=== PATIENT | female | born 1965 | race Hispanic/Latino ===

== ENCOUNTER → 2018-07-14 | Outpatient (CLI) | payer BC, MEDICARE | END | disposition home or self-care (01) | LOC: OIH 15:46 | PROVIDERS: ATTEND Internal Medicine | DX: M85.842 Other specified disorders of bone density and structure, left hand (principal); M85.841 Other specified disorders of bone density and structure, right hand; M06.4 Inflammatory polyarthropathy | CPT/HCPCS: 73130; 73560; 73630 ==

== ENCOUNTER 2019-04-25 23:03 | Emergency (ER) | payer BC, MEDICARE ==
[2019-04-25 23:39] LABS: APPEARANCE,URINE Cloudy (CLEAR); BILIRUBIN,URINE Negative (NEGATIVE); COLOR,URINE Yellow (YELLOW); GLUCOSE, URINE (UA) Negative (NEGATIVE); KETONES,URINE Trace mg/dL (NEGATIVE); LEUKOCYTE ESTERASE ,URINE Moderate (NEGATIVE); NITRATE,URINE Negative (NEGATIVE); OCCULT BLOOD,URINE Moderate (NEGATIVE); PH,URINE 5.5 (5.0-8.0); PROTEIN,URINE Trace mg/dL (NEGATIVE)
[2019-04-25 23:50] LABS: BACTERIA,URINE Few /HPF (None Seen); MUCUS,URINE Few LPF (None Seen); SQUAMOUS EPITHELIAL CELL,UR Moderate /HPF (0-2)
[2019-04-25 23:51] LABS: CALCIUM OXALATE CRYSTALS,UR Moderate /LPF (None Seen)
[2019-04-25] MEDS ORDERED: ONDANSETRON HCL 4 MG/2 ML VIAL ONE (23:56)
[2019-04-25] MEDS ORDERED: METOCLOPRAMIDE 10 MG/2 ML VIAL ONE (23:56)
[2019-04-25] MEDS ORDERED: DiphenhydrAMINE HCL 50 MG/ML VIAL ONE (23:56)
[2019-04-25] MEDS ORDERED: KETOROLAC TROMETHAMINE 30MG/ML ONE (23:57)
[2019-04-25] MEDS ORDERED: SODIUM CHLORIDE 0.9% 1000ML 1,000 ML IV ONE (23:57)
[2019-04-26 00:01] LABS: BASOPHILS % (AUTO) 0.6 % (0.0-5.0); EOSINOPHILS % (AUTO) 2.9 % (0.0-8.0); HEMATOCRIT 36.5 % (36-48); LYMPHOCYTES % (AUTO) 36.6 % (21.0-51.0); MEAN CORPUSCULAR HEMOGLOBIN 31.4 pg (27.0-33.0); MEAN CORPUSCULAR HGB CONC 34.8 g/dL (32.0-36.0); MONOCYTES % (AUTO) 5.5 % (3.0-13.0); NEUTROPHILS % (AUTO) 54.4 % (40.0-77.0); NUCLEATED RED BLOOD CELLS 0.1 % (0.0-0.19); PLATELET COUNT (AUTO) 88 K/uL (130-400); RED BLOOD CELL COUNT(AUTO) 4.05 MIL/uL (4.00-5.50); RED CELL DISTRIBUTION WIDTH 12.8 % (11.0-15.5)
[2019-04-26 00:11] LABS: CREATININE 0.7 mg/dL (0.5-1.5); POTASSIUM 3.6 mmol/L (3.5-5.1)
[2019-04-26 00:18] LABS: ALBUMIN 3.9 g/dL (3.5-5.0); BILIRUBIN,TOTAL 0.4 mg/dL (0.2-1.0); TOTAL PROTEIN, SERUM 7.9 g/dL (6.0-8.3)
[2019-04-26] MEDS ORDERED: LIDOCAINE HCL MPF 1% 5ML VIAL ONE (00:25)
[2019-04-26] MEDS ORDERED: LIDOCAINE HCL 1% 20 ML VIAL ONE (00:26)
[2019-04-26] MEDS ORDERED: LIDOCAINE HCL-MPF 2% 5ML VIAL ONE (00:26)
[2019-04-26] MEDS ORDERED: TAMSULOSIN HCL 0.4 MG CAP.ER.24H ONE (00:29)
[2019-04-26] MEDS ORDERED: LIDOCAINE PF 2% 5ML ABBOJECT ONE (00:42)
[2019-04-26 00:52] LABS: PARTIAL THROMBOPLASTIN TIME 26.2 SEC (26.3-35.5); PROTHROMBIN TIME 10.5 SEC (9.6-11.6)
[2019-04-26] MEDS ORDERED: SODIUM CHLORIDE 0.9% 1000ML 1,000 ML IV ONE (01:39)
[2019-04-26] MEDS ORDERED: MORPHINE SULFATE 4 MG/1ML SYG ONE (01:50)
== END 2019-04-26 02:08 | disposition home or self-care (01) ==
LOC: EDH 23:03
DX: N13.2 Hydronephrosis with renal and ureteral calculous obstruction (principal); M06.9 Rheumatoid arthritis, unspecified
CPT/HCPCS: 36415 ×2; 74176; 80053; 81001; 82550; 83605; 83690; 84484; 85025; 85610; 85730; 93005; 96374; 96375; 99285; J1200; J1885; J2001; J2270; J2405; J2765; J7030 ×2; J3490